=== PATIENT | male | born 1950 | race African-American/Black ===

== ENCOUNTER 2020-06-21 12:06 | Observation (INO) ==
[2020-06-21] MEDS ORDERED: LABETALOL 20 MG/4 ML SYRINGE IV STA (12:35)
[2020-06-21 13:22] LABS: Basophils % 0.1 % (0.0-0.8); Immature Granulocytes % 0.7 %; Immature Granulocytes Absolute 0.05 #; Lymphocytes # 0.3 10*3/uL (1.4-4.0); Lymphocytes % 4.4 % (21.2-54.2); Mean Corpuscular Volume 93.9 FL (87-102); Mean Platelet Volume 9.8 FL (9.6-12.0); Monocytes % 6.2 % (1.7-12.7); Neutrophils % 88.6 % (38.7-73.9); Platelet Count 104 T/CUMM (130-400); Red Blood Count 4.26 MC/CUMM (3.8-5.5); Red Cell Distribution Width 13.6 % (9.3-17.3); White Blood Count 7.3 T/CUMM (4-12)
[2020-06-21 13:36] LABS: PT Patient Result 10.8 SECS (9.8-11.9)
[2020-06-21] MEDS ORDERED: cloNIDine 0.1 MG TABLET ONE (13:56)
[2020-06-21] MEDS ORDERED: cloNIDine 0.1 MG TABLET PO STA (13:56)
[2020-06-21 15:22] LABS: Albumin 3.5 G/DL (3.4-5.0); Bilirubin,Total 3.1 MG/DL (0.2-1.0); Calcium 9.2 MG/DL (8.5-10.1); Osmolality,Calculated 265.7 MOS/KG (273-304); Total Protein 7.7 G/DL (6.4-8.3)
[2020-06-21] MEDS ORDERED: POTASSIUM CHLORIDE 20 MEQ TABLET PO STA (15:54)
[2020-06-21] MEDS ORDERED: ONDANSETRON 4 MG/2 ML VIAL IV PRN (16:21)
[2020-06-21] MEDS ORDERED: DEXTROSE 50% 25 GM/50 ML VIAL IV PRN (16:21)
[2020-06-21] MEDS ORDERED: GLUCAGON 1 MG VIAL IM PRN (16:21)
[2020-06-21] MEDS ORDERED: DOCUSATE SODIUM 100 MG CAPSULE PO PRN (16:21)
[2020-06-21] MEDS ORDERED: hydrALAZINE 20 MG/1 ML VIAL IV PRN (16:21)
[2020-06-21] MEDS ORDERED: guaiFENesin/DM ER 600-30 MG TABLET PO PRN (16:21)
[2020-06-21] MEDS ORDERED: ACETAMINOPHEN 325 MG TABLET PO PRN (16:21)
[2020-06-21 17:36] LABS: Ferritin 332.9 ng/ml (26-388)
[2020-06-21 17:43] LABS: Risk Ratio 2.2; Thyroid Stimulating Hormone 1.44 uIU/ml (0.358-3.74); VLDL CHOLESTEROL 34.8 MG/DL
[2020-06-21] MEDS ORDERED: DEXTROSE 50% 25 GM/50 ML SYRINGE IV PRN (19:10)
[2020-06-21] MEDS: SODIUM CHLORIDE 0.9% 1,000 ML IV SCH (19:21)
[2020-06-21] MEDS: ENOXAPARIN 40 MG/0.4 ML SYRINGE SUBCUT SCH (20:52)
[2020-06-21] MEDS: POTASSIUM CHLORIDE 20 MEQ TABLET PO PRN ×2 (20:52→22:53)
[2020-06-21] MEDS: hydrALAZINE 25 MG TABLET PO SCH (20:53)
[2020-06-21] MEDS: INSULIN REGULAR 100 UNIT/ML SUBCUT SCH (20:53)
[2020-06-21 21:13] LABS: Hepatitis B Core IgM Quant 0.07 Index; Hepatitis B Surface Ag Quant < 0.10 Index; Hepatitis B Surface Ag Result Negative (Negative); Hepatitis C Virus Ab Quant 0.04 Index; Hepatitis C Virus Ab Result Negative (Negative)
[2020-06-21 22:54] LABS: Bilirubin,Urine Negative (Negative); Blood, Urine Negative (Negative); Glucose,Urine (UA) Negative (Negative); Ketones,Urine 5 mg/dL (Negative); Mucus,Urine Occasional /LPF (Occasional); Nitrite,Urine Negative (Negative); Protein,Urine 30 MG/DL; RBC,Urine 3 /HPF (0-4); Squamous Epithelial Cell,Urine Occasional /HPF (0-10); Urine Appearance CLEAR (Clear); Urine Color Amber (Yellow); Urine Specific Gravity > 1.060 (1.001-1.035); WBC,Urine 1 /HPF (0-6)
[2020-06-22] MEDS: POTASSIUM CHLORIDE 20 MEQ TABLET PO PRN ×2 (00:52→05:20)
[2020-06-22 06:15] LABS: Basophils % 0.2 % (0.0-0.8); Eosinophils % 0.3 % (0.00-10.9); Hematocrit 35.6 VOL% (42.0-52.0); Hemoglobin 12.3 GM/DL (14.0-18.0); Immature Granulocytes % 0.3 %; Immature Granulocytes Absolute 0.02 #; Lymphocytes % 16.6 % (21.2-54.2); Mean Corpuscular HGB Conc 34.6 GM/DL (32-36); Mean Corpuscular Volume 95.2 FL (87-102); Mean Platelet Volume 10.6 FL (9.6-12.0); Monocytes % 11.7 % (1.7-12.7); Neutrophils % 70.9 % (38.7-73.9); Red Blood Count 3.74 MC/CUMM (3.8-5.5); Red Cell Distribution Width 13.6 % (9.3-17.3); White Blood Count 6.1 T/CUMM (4-12)
[2020-06-22 06:22] LABS: Platelet Count 89 T/CUMM (130-400)
[2020-06-22 06:31] LABS: Albumin 3.1 G/DL (3.4-5.0); Bilirubin,Total 2.6 MG/DL (0.2-1.0); Calcium 8.4 MG/DL (8.5-10.1); Total Protein 6.7 G/DL (6.4-8.3)
[2020-06-22] MEDS ORDERED: hydrALAZINE 25 MG TABLET PO ONE (09:00)
[2020-06-22] MEDS: INSULIN REGULAR 100 UNIT/ML SUBCUT SCH ×2 (09:12→17:19)
[2020-06-22] MEDS: ASPIRIN CHEW 81 MG TABLET PO SCH (09:17)
[2020-06-22] MEDS: PANTOPRAZOLE 40 MG TABLET PO SCH (09:18)
[2020-06-22] MEDS: amLODIPine 10 MG TABLET PO SCH (09:18)
[2020-06-22] MEDS: hydrALAZINE 25 MG TABLET PO SCH ×3 (09:47→21:15)
[2020-06-22] MEDS ORDERED: INFLUENZA VIRUS VACCINE 0.5 ML SYRINGE IM ONE (13:05)
[2020-06-22] MEDS: SODIUM CHLORIDE 0.9% 1,000 ML IV SCH (13:06)
[2020-06-22 14:59] LABS: Barbiturates Screen,Urine Negative (Negative); Benzodiazepines Screen,Urine Negative (Negative); Cannabinoid Screen,Urine Negative (Negative); Opiate Screen,Urine Negative (Negative); Phencyclidine Screen,Urine Negative (Negative)
[2020-06-22] MEDS: METOPROLOL TARTRATE 25 MG TABLET PO SCH ×2 (17:17→21:15)
[2020-06-22] MEDS ORDERED: ATORVASTATIN 10 MG TABLET PO SCH (21:00)
[2020-06-22] MEDS: ENOXAPARIN 40 MG/0.4 ML SYRINGE SUBCUT SCH (21:14)
[2020-06-23 05:36] LABS: Basophils % 0.3 % (0.0-0.8); Eosinophils # 0.1 10*3/uL (0.0-0.87); Eosinophils % 0.8 % (0.00-10.9); Hematocrit 35.8 VOL% (42.0-52.0); Immature Granulocytes % 0.5 %; Immature Granulocytes Absolute 0.03 #; Lymphocytes # 1.2 10*3/uL (1.4-4.0); Lymphocytes % 20.7 % (21.2-54.2); Mean Corpuscular HGB Conc 33.5 GM/DL (32-36); Mean Platelet Volume 10.1 FL (9.6-12.0); Monocytes % 12.6 % (1.7-12.7); Neutrophils % 65.1 % (38.7-73.9); Platelet Count 78 T/CUMM (130-400); Red Blood Count 3.77 MC/CUMM (3.8-5.5); Red Cell Distribution Width 13.6 % (9.3-17.3); White Blood Count 5.9 T/CUMM (4-12)
[2020-06-23 05:54] LABS: Calcium 8.8 MG/DL (8.5-10.1); Osmolality,Calculated 262.5 MOS/KG (273-304)
[2020-06-23 06:01] LABS: Hypochromasia 1+; Platelet Estimate Decreased
[2020-06-23] MEDS ORDERED: MAGNESIUM SULF RIDER 2 GM in PREMIX 1 EACH IV ONE (07:04)
[2020-06-23] MEDS ORDERED: POTASSIUM CHLORIDE 20 MEQ TABLET PO ONE (07:37)
[2020-06-23] MEDS: ASPIRIN CHEW 81 MG TABLET PO SCH (08:58)
[2020-06-23] MEDS: PANTOPRAZOLE 40 MG TABLET PO SCH (08:59)
[2020-06-23] MEDS ORDERED: POTASSIUM CHLORIDE 20 MEQ TABLET PO SCH (09:00)
[2020-06-23] MEDS: hydrALAZINE 25 MG TABLET PO SCH (09:00)
[2020-06-23] MEDS: METOPROLOL TARTRATE 25 MG TABLET PO SCH (09:01)
[2020-06-23] MEDS: amLODIPine 10 MG TABLET PO SCH (09:01)
[2020-06-23 09:14] LABS: Bilirubin,Direct 0.47 MG/DL (0.0-0.20); Bilirubin,Indirect 1.9 MG/DL (0.0-1.0); Bilirubin,Total 2.4 MG/DL (0.2-1.0); Total Protein 6.8 G/DL (6.4-8.3)
[2020-06-23] MEDS: INSULIN REGULAR 100 UNIT/ML SUBCUT SCH (11:12)
[2020-06-23 13:47] VITALS: BP 133/72
[2020-06-24] MEDS ORDERED: LOSARTAN 50 MG TABLET PO SCH (09:00)
== END 2020-06-23 16:07 | disposition home health service (06) ==
LOC: EDBD → EDUNIT# → N.ED 12:06 → N.EDINP 12:06 → SUATTDRO 16:21 → N.TELES 19:01
PROVIDERS: ADMIT Internal Medicine; ATTEND Internal Medicine